=== PATIENT | female | born 1985 | race Caucasian/White ===

== ENCOUNTER 2020-11-18 11:19 | Emergency (ER) | payer MEDICAID ==
[~2020-11-18] VITALS: Ht 152.4 cm; Wt 60.0 kg
[2020-11-18 11:26] VITALS: BP 105/55
== END 2020-11-18 12:23 | disposition home or self-care (01) ==
LOC: ER 11:19
DX: Z00.00 Encounter for general adult medical examination without abnormal findings (principal)
CPT/HCPCS: 99281

== ENCOUNTER → 2020-11-18 | Outpatient (CLI) | payer MEDICAID ==
[2020-11-18 13:47] LABS: BASOPHILS % 0.3 % (0.0-2.0); EOSINOPHILS % 2.6 % (0.0-5.0); HEMATOCRIT. 34.5 % (36.0-48.0); HEMOGLOBIN. 11.7 g/dL (12.0-16.0); MEAN CORPUSCULAR VOLUME 88.2 fL (81.0-99.0); MEAN PLATELET VOLUME 8.1 fl (7.4-10.4); MONOCYTES % 6.4 % (2.0-8.0); NEUTROPHILS % 75.7 % (40.0-76.0); PLATELET 274 x1000/uL (130-400); RED BLOOD CELL COUNT 3.91 mill/uL (4.2-5.4)
[2020-11-18 13:59] LABS: TOTAL IRON BINDING CAPACITY 440 ug/dL (250-450)
[2020-11-18 14:23] LABS: PLATELET ESTIMATE NORMAL
[2020-11-18 14:24] LABS: FERRITIN 15 ng/mL (10-291)
[2020-11-18 14:26] LABS: VITAMIN B12 SERUM 614 pg/mL (211-911)
[2020-11-18 14:27] LABS: FOLIC ACID (FOLATE) SERUM > 20.00 ng/mL (>5.38)
== END | disposition home or self-care (01) ==
LOC: LAB 12:59
PROVIDERS: ATTEND Obstetrics & Gynecology Maternal & Fetal Medicine
DX: O99.012 Anemia complicating pregnancy, second trimester (principal); Z3A.00 Weeks of gestation of pregnancy not specified
CPT/HCPCS: 36415; 82607; 82728; 82746; 83540; 83550; 85025; 86850; 86870; 86900